=== PATIENT | male | born 1965 | race American Indian/Alaskan Native ===

== ENCOUNTER 2017-10-10 15:39 | Emergency (ER) | payer SELFPAY ==
--- NOTE | 2017-10-10 16:07 | ED PDOC ---
Arrival/HPI - General Chief Complaint: Seizure Time Seen by Provider: 10/10/17 16:01 - History of Present Illness Narrative History of Present Illness (Text): 52 y/o M brought in police custody for generalized tremor. Patient was reportedly caught shoplifting and once handcuffs were placed, the patient began having generalized tremors. Police officers at bedside state the patient was speaking while shaking. ED staff report patient had a response to perales catheterization, rectal temperature, and IV insertion. Patient is having generalized shaking in ED stretcher and is not responding to questions. Past Medical History - Infectious Disease Hx of Infectious Diseases: None - Psychiatric Hx Substance Use: No Family/Social History Family/Social History: Unknown Family HX Smoking Status: Unknown If Ever Smoked Hx Alcohol Use: No Hx Substance Use: No Allergies/Home Meds Allergies/Adverse Reactions: Allergies Unobtainable Allergy (Verified 10/10/17 16:19) Home Medications: Home Meds Medication Instructions Recorded Confirmed Unobtainable 10/10/17 10/10/17 Review of Systems - Review of Systems Systems not reviewed;Unavailable: Other (see HPI) Physical Exam - Physical Exam Narrative Physical Exam (Text): Constitutional: Generalized tremor. Head: Atraumatic. Eyes: PERRL. ENT: Moist mucous membranes. Neck: Supple. Cardiovascular: Regular rate. Chest: No deformity. Respiratory: Clear to auscultation bilaterally. GI: Soft. Nontender. Nondistended. Musculoskeletal: No swelling of extremities. Skin: No rash. +Perspiration. Neurologic: Generalized shaking intermittently just legs, then arms, stops tremor occasionally but resumes when entering room, not responding to verbal. Drops arm from elevated status to side. Withdraws to pin prick. Vital Signs Temp Pulse Resp BP Pulse Ox 10/10/17 17:18 98 H 18 131/89 100 10/10/17 15:58 100.2 F H 10/10/17 15:50 117 H 20 141/102 H 100 Medical Decision Making ED Course and Treatment: Blood pressure from triage artificial. Patient noted to be flexing bicep as cuff is deflating, causing it to reinflate. Thigh BP obtained and largely normal. HR normal. EKG with wavey baseline secondary to patient's tremor, NSR, 100 bpm, no ST elevations. Labs unremarkable. Positive for cocaine, Benzo, opiates. Will discharge in police custody. Patient is medically cleared for incarceration. - Lab Interpretations Lab Results: 10/10/17 16:01 10/10/17 16:01 Lab Results 10/10/17 16:03: Alcohol, Quantitative < 10 10/10/17 16:03: Urine Opiates Screen Positive H, Urine Methadone Screen Negative , Ur Barbiturates Screen Negative, Ur Phencyclidine Scrn Negative, Ur Amphetamines Screen Negative, U Benzodiazepines Scrn Positive H, U Oth Cocaine Metabols Positive H, U Cannabinoids Screen Negative 10/10/17 16:01: Sodium 143, Potassium 3.8, Chloride 106, Carbon Dioxide 22, Anion Gap 20, BUN 9, Creatinine 0.8, Est GFR ( Amer) > 60, Est GFR (Non- Af Amer) > 60, Random Glucose 242 H, Calcium 9.3, Total Bilirubin 0.3, AST 25, ALT 19, Alkaline Phosphatase 73, Total Creatine Kinase 373 H, CK-MB (CK-2) 1.7, CK-MB (CK-2) % Cancelled, Total Protein 7.8, Albumin 4.4, Globulin 3.4, Albumin/ Globulin Ratio 1.3 10/10/17 16:01: Urine Color Yellow, Urine Appearance Clear, Urine pH 6.0, Ur Specific [place] 1.025, Urine Protein Trace H, Urine Glucose (UA) 100 H, Urine Ketones Negative, Urine Blood Negative, Urine Nitrate Negative, Urine Bilirubin Negative, Urine Urobilinogen 0.2, Ur Leukocyte Esterase Negative, Urine RBC Negative, Urine WBC 2 - 5, Ur Epithelial Cells 3 - 4, Urine Bacteria Few 10/10/17 16:01: WBC 6.8, RBC 4.86, Hgb 13.6 L, Hct 39.4 L, MCV 81.1, MCH 28.0, MCHC 34.5, RDW 14.9 H, Plt Count 164, MPV 11.0 - RAD Interpretation Radiology Orders: 10/10/17 16:03 CHEST PORTABLE [RAD] Stat - Medication Orders Current Medication Orders: Sodium Chloride (Sodium Chloride 0.9%) 100 mls @ 100 mls/hr IV .Q1H [id number] Last Admin: 10/10/17 16:59 Dose: 100 mls/hr Disposition/Present on Arrival - Present on Arrival Any Indicators Present on Arrival: No History of DVT/PE: No History of Uncontrolled Diabetes: No Urinary Catheter: No History of Decub. Ulcer: No History Surgical Site Infection Following: None - Disposition Have Diagnosis and Disposition been Completed?: Yes Diagnosis: Malingering Disposition: RELEASED IN POLICE CUSTODY Disposition Time: 17:34 Patient Plan: Discharge Condition: STABLE Additional Instructions: Patient is medically clear for incarceration. Forms: [employer] (Danish)
[2017-10-10 16:20] LABS: HEMOGLOBIN 13.6 g/dL (14.0-18.0); MEAN CELL VOLUME 81.1 fl (80.0-105.0); MEAN CORPUSCULAR HGB CONC 34.5 g/dl (31.0-37.0); RBC 4.86 10^6/uL (3.5-6.1); RED CELL DISTRIBUTION WIDTH 14.9 % (11.5-14.5); WHITE BLOOD COUNT 6.8 10^3/ul (4.5-11.0)
[2017-10-10 16:24] LABS: ALB/GLOB RATIO 1.3 (1.1-1.8); ALBUMIN 4.4 g/dL (3.0-4.8); ALT/SGPT 19 U/L (7-56); AST/SGOT 25 U/L (17-59); BLOOD UREA NITROGEN 9 mg/dL (7-21); CALCIUM 9.3 mg/dL (8.4-10.5); GFR AFRICAN-AMERICAN > 60; GFR NON-AFRICAN AMERICAN > 60
[2017-10-10 16:30] LABS: BARBITURATES, UR NEGATIVE (NEGATIVE)
[2017-10-10 16:39] LABS: URINE BILIRUBIN NEGATIVE (NEGATIVE); URINE BLOOD NEGATIVE (NEGATIVE); URINE GLUCOSE (UA) 100 mg/dL (NEGATIVE); URINE LEUKOCYTE ESTERASE NEGATIVE Leu/uL (NEGATIVE); URINE PROTEIN TRACE mg/dL (<30 mg/dL); URINE UROBILINOGEN 0.2 E.U./dL (<1 E.U./dL)
[2017-10-10 16:41] LABS: URINE APPEARANCE CLEAR (CLEAR); URINE COLOR YELLOW (YELLOW); URINE RBC NEGATIVE /hpf (0-2)
[2017-10-10 16:42] LABS: CK-MB 1.7 ng/mL (0.0-3.6); URINE BACTERIA FEW (NEG)
[2017-10-10 16:43] LABS: BENZODIAZEPINES, UR POSITIVE (NEGATIVE); OPIATES, UR POSITIVE (NEGATIVE); PHENCYCLIDINE, UR NEGATIVE (NEGATIVE)
[2017-10-10] MEDS: Sodium Chloride 0.9% 100 ML IV SCH ×2 (16:59→18:26)
[2017-10-10 18:29] VITALS: BP 119/72; PULSE 85; RESP 20; TEMP 99.2; O2SAT 99
--- NOTE | 2017-10-11 08:37 | CARD ---
APPROVED REPORT EKG Measurement Heart [id number] <Conclusion> Sinus tachycardia Possible Septal NH, age unknown Artifact present
--- NOTE | 2017-10-11 09:22 | RAD ---
HISTORY: Tremor COMPARISON: No prior. FINDINGS: LUNGS: No active pulmonary disease. PLEURA: No significant pleural effusion identified, no pneumothorax apparent. CARDIOVASCULAR: Normal. OSSEOUS STRUCTURES: No significant abnormalities. VISUALIZED UPPER ABDOMEN: Normal. OTHER FINDINGS: None. IMPRESSION: No active disease.
== END 2017-10-10 18:27 ==
LOC: ED 15:39
DX: Z76.5 Malingerer [conscious simulation] (principal)
CPT/HCPCS: 71045; 80053; 81001; 82550; 82553; 85027; 93005; 99285; G0480